=== PATIENT | female | born 1980 | race Caucasian/White ===

== ENCOUNTER → 2016-11-13 | Outpatient (CLI) | payer OTHER ==
[~2016-11-13] MED LIST: MOTRIN 600600 MG/TAB PO; PERCOCET 325 MG1 TA2 PO; PRENATAL1 TA7 PO; TAMIFLU 75MG75 MG PO
[2016-11-13 17:34] LABS: BASO % 0.6 % (0.0-2.0); EOS # 0.2 (0.0-0.7); EOS % 3.8 % (0-4.0); GRAN # 2.7 (1.4-6.5); GRAN % 53.4 % (42.2-75.2); HEMATOCRIT 42.7 % (37.0-47.0); HEMOGLOBIN 13.8 g/dl (12.5-16.0); LYMPH # 1.8 (1.2-3.4); LYMPH % 36.6 % (20.0-51.0); MEAN CELL VOLUME 94 fl (80.0-100.0); MEAN CORPUSCULAR HEMOGLOBIN 31 pg (27.0-31.0); MEAN CORPUSCULAR HGB CONC 32 g/dl (33.0-37.0); MEAN PLATELET VOLUME 12.5 fl (7.4-10.4); MONO # 0.3 (0.1-0.6); MONO % 5.4 % (1.7-9.3); PLATELET COUNT 217 K/mm3 (130-400); RED BLOOD COUNT 4.53 M/mm3 (4.10-5.30); REDCELL DISTRIBUTION WIDTH-CV 13.9 % (11.5-14.5)
== END ==
LOC: ZLAB.FHCC 13:25
DX: Z01.89 Encounter for other specified special examinations (principal)

== ENCOUNTER → 2016-12-21 | Outpatient (CLI) | payer OTHER | LOC: COL.RAD 08:00 | DX: M62.08 Separation of muscle (nontraumatic), other site (principal); Q63.0 Accessory kidney; K43.9 Ventral hernia without obstruction or gangrene | CPT/HCPCS: Q9967 ==

== ENCOUNTER 2017-11-13 05:56 | Inpatient (IN) | payer OTHER ==
[2017-11-13] VITALS (18 sets, daily range): BP systolic 83–133; BP diastolic 47–76; PULSE 53–86; TEMP 98.2–98.3
[~2017-11-13] VITALS: Ht 152.4 cm; Wt 59.1 kg
[2017-11-13 08:35] LABS: BASO % 0.4 % (0.0-2.0); EOS # 0.1 (0.0-0.7); EOS % 0.8 % (0-4.0); GRAN # 8.3 (1.4-6.5); GRAN % 82.4 % (42.2-75.2); HEMOGLOBIN 12.3 g/dl (12.5-16.0); LYMPH % 10.2 % (20.0-51.0); MEAN CELL VOLUME 97 fl (80.0-100.0); MEAN CORPUSCULAR HEMOGLOBIN 33 pg (27.0-31.0); MEAN CORPUSCULAR HGB CONC 35 g/dl (33.0-37.0); MEAN PLATELET VOLUME 12.3 fl (7.4-10.4); MONO # 0.5 (0.1-0.6); MONO % 4.5 % (1.7-9.3); PLATELET COUNT 166 K/mm3 (130-400); RED BLOOD COUNT 3.69 M/mm3 (4.10-5.30); REDCELL DISTRIBUTION WIDTH-CV 14.7 % (11.5-14.5)
[2017-11-13 08:46] LABS: HEMATOCRIT 35.7 % (37.0-47.0)
[2017-11-14] VITALS: BP 90/48; PULSE 70; TEMP 98.7
[2017-11-14 07:28] LABS: HEMATOCRIT 33.1 % (37.0-47.0); HEMOGLOBIN 11.1 g/dl (12.5-16.0)
[2017-11-14 08:00] VITALS: BP 93/51; PULSE 74; TEMP 98.7
[2017-11-14 16:00] VITALS: BP 98/50; PULSE 81; TEMP 97.8
[2017-11-14 20:30] VITALS: BP 99/59; PULSE 79; TEMP 97.9
[2017-11-15 06:55] VITALS: BP 106/67; PULSE 79; TEMP 98.6
[2017-11-15] MEDS ORDERED: IBU600 MG PO (08:22)
[2017-11-15] MEDS ORDERED: PERCOCET 325 MG1 TA2 PO (08:22)
== END 2017-11-15 11:55 | disposition home or self-care (01) | DRG 766 ==
LOC: LDRO 05:56 → LDR 06:41 → OB 07:29
PROVIDERS: Obstetrics & Gynecology
PROC: 10D00Z1 Extraction of Products of Conception, Low, Open Approach (ICD-10-PCS; principal; 2017-11-13)
PROC: 0UB70ZZ Excision of Bilateral Fallopian Tubes, Open Approach (ICD-10-PCS; 2017-11-13)
DX: O34.211 Maternal care for low transverse scar from previous cesarean delivery (principal); N85.8 Other specified noninflammatory disorders of uterus; O71.89 Other specified obstetric trauma; O75.89 Other specified complications of labor and delivery; Z3A.38 38 weeks gestation of pregnancy; Z37.0 Single live birth; Z40.03 Encounter for prophylactic removal of fallopian tube(s)
CPT/HCPCS: J0690; J1885; J2175; J2210; J2270; J2370; J2405; J2550; J2590; J7120